=== PATIENT | female | born 1935 | race Hispanic/Latino ===

== ENCOUNTER 2016-07-26 15:37 | Emergency (ER) | payer MEDICARE, MEDICAID ==
[~2016-07-26] VITALS: Ht 165.1 cm; Wt 86.8 kg
[~2016-07-26 15:37] MED LIST: ASPI-973 PO; CARV6.252 PO; CEPH-512 PO; CHOL500011 PO; CLOP75TA28 PO; CYAN25003 SL; DONE10TA5 PO; ERGO500050 PO; HYDR-3605 PO; KEN25CR EXT; LISI40TA PO; OXYB10TA PO; PHEN-777 PO; PRAV40TA PO; UBID1CAP2 PO
[2016-07-26 15:39] VITALS: BP 216/84; PULSE 63; RESP 20; O2SAT 98
--- NOTE | 2016-07-26 15:52 | ED.REPORT ---
HPI-General Illness Date of Service July 26, 2016 ED Provider: Adilson Marquez MD The patient is an 80 year old female w/ a hx of brain aneurysm, CVA, and HTN who presents to the ED accompanied by her daughter due to a elevated blood pressure for the past couple days. Today, she went to her PCP appointment for her toenails and her PCP sent her to the ED for her high blood pressure. She also c/o ringing in her ears but no headache. She has been taking her blood pressure medication as usual. The pt denies chest pain and sob. She is currently on carvedilol and lisinopril (40 mg). Nursing Notes Stated Complaint: HIGH BLOOD PRESSURE Chief Complaint: General Complaint Nursing Notes Reviewed: Yes Allergies: Coded Allergies: celecoxib (Verified Allergy, Severe, stroke, 12/10/14) atorvastatin (Verified Adverse Reaction, Severe, numbness, 12/10/14) Scheduled Aspirin (Aspirin) 81 Mg Tablet 81 MG PO DAILY Carvedilol (Carvedilol) 12.5 Mg Tablet 12.5 MG PO BID Cholecalciferol (Vitamin D3) (Vitamin D3) 5,000 Unit Tablet 5,000 UNIT PO DAILY Clopidogrel (Clopidogrel) 75 Mg Tablet 75 MG PO DAILY Cyanocobalamin (Vitamin B-12) (Vitamin B-12) 2,500 Mcg Tab.subl 2,500 MCG SL DAILY Donepezil (Aricept) 10 Mg Tablet 20 MG PO HS Lisinopril (Lisinopril) 40 Mg Tablet 40 MG PO DAILY Oxybutynin Chloride ER (Oxybutynin Chloride ER) 10 Mg Tab.er.24 10 MG PO DAILY Pravastatin (Pravastatin) 40 Mg Tablet 40 MG PO HS Triamcinolone Acet (Triamcinolone Acetonide Cream) 1 Applic/0.25 Gm Cr 1 APPLIC EXT BID Ubidecarenone/Lingle-3/Vit E (Co Q-10-Vit E-Fish Oil Sfgl) 1 Each Capsule 1 EACH PO DAILY Scheduled PRN HydrOXYzine HCl (HydrOXYzine HCl) 10 Mg Tablet 5 MG PO HS PRN PRN For Itching General Time Seen by MD: 15:51 Chief Complaint Other (high blood pressure) Hx Obtained From: Patient Arrived By: Walk-in Sudden in Onset?: Yes Onset Occurred: 3 days ago Symptom Duration: Since onset Severity: Current: No pain currently Recent Healthcare: No recent doctor visit, No recent hospitalization Similar Sx Previous: No Past Medical History Past Medical History 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 Physical Exam Vital Signs Vital Signs Date Time Temp Pulse Resp B/P Pulse Ox O2 Delivery O2 Flow Rate FiO2 07/26/16 18:07 36.4 63 17 178/60 96 Room Air 07/26/16 17:51 36.4 63 17 178/60 96 Room Air 07/26/16 17:02 59 16 176/56 98 Room Air 07/26/16 16:15 67 19 192/69 98 Room Air 07/26/16 15:39 36.7 63 20 216/84 98 Room Air Initial VS: Reviewed Head / Eyes: Atraumatic, Normocephalic, PERRL ENT: Mucous membranes moist, Conjunctiva normal Neck: Supple, Non-tender Respiratory: Breath sounds normal, Clear to auscultation, No respiratory distress Cardiovascular: Regular rate & rhythm, Heart sounds normal, Intact distal pulses Abdomen / GI: Soft, Non-tender, No guarding, No rebound, No distention Back: No CVA tenderness Extremities: Vascular intact, Neuro intact, No swelling, No tenderness Skin: Warm, Dry Neurologic: Oriented X3, Speech NL, No motor deficits, No sensory deficits, CN II - XII intact Interpretation & Diagnostics Lab Results Interpretation Result Diagram: 07/26/16 1630 07/26/16 1630 Test 07/26/16 16:30 White Blood Count 7.2th/mm3 (3.8-10.1) Red Blood Count 4.29mil/mm3 (3.90-5.20) Hemoglobin 11.8g/dL (12.0-15.6) Hematocrit 36.2% (35.0-46.0) Mean Corpuscular Volume 84.4fL (81-100) Mean Corpuscular Hemoglobin 27.5pg (27.0-35.0) Mean Corpuscular Hemoglobin Concent 32.6% (32.0-37.0) Red Cell Distribution Width 14.9% (12.3-15.4) Platelet Count 230bil/L (150-400) Neutrophils (%) (Auto) 58.9% (40-74) Lymphocytes (%) (Auto) 27.3% (14-46) Monocytes (%) (Auto) 9.3% (4-12) Eosinophils (%) (Auto) 4.0% (0-5) Basophils (%) (Auto) 0.4% (0-3) Sodium Level 139mEq/L (134-144) Potassium Level 4.6mEq/L (3.5-5.2) Chloride Level 101mEq/L (97-108) Carbon Dioxide Level 23mmol/L (18-29) Blood Urea Nitrogen 14mg/dL (8-27) Creatinine 0.49mg/dL (0.57-1.00) Estimat Glomerular Filtration Rate 173mL/min (>59) Glucose Level 82mg/dL (60-99) Calcium Level 9.4mg/dL (8.5-10.1) Magnesium Level 2.0mg/dL (1.6-2.6) Total Bilirubin 0.4mg/dL (0.0-1.2) Aspartate Amino Transf (AST/SGOT) 27U/L (0-50) Alanine Aminotransferase (ALT/SGPT) 9U/L (0-32) Alkaline Phosphatase 66U/L (25-165) Troponin T < 0.010ug/L (0.0-0.011) Total Protein 7.3g/dL (6.4-8.4) Albumin 3.7g/dL (3.4-5.0) Hold Aviles Top Tube Received (Received) X-Ray Chest Interpretation Chest Xray Interpretation: IMPRESSION: No acute pulmonary process. Dictated by: Ivonne Iraheta M.D. on 07/26/2016 at 16:39 Approved by: Ivonne Iraheta M.D. on 07/26/2016 at 16:39 View: Portable Interpretation / Wet Read by: Interpret - Radiologist CT Head Interpretation IMPRESSION: No acute intracranial abnormality. Mild atrophy and small vessel ischemic change of aging. Postoperative changes. Right frontal craniotomy and metallic densities up to the aneurysm clip. Dictated by: Grover Guerrero M.D. on 07/26/2016 at 17:06 Approved by: Grover Guerrero M.D. on 07/26/2016 at 17:08 Study: Head CT no contrast Interpretation / Wet Read by: Interpret - Radiologist Re-Eval/Medical Decision Med Decision/Clinical Course 80-year-old female history of hypertension and aneurysm sent in by by primary doctor for elevated blood pressures. Her systolic blood pressure was 210 on arrival. It improved to 160s 170s with labetalol. Her only symptom was remaining in her ears which resolved with improvement in blood pressure. Her CT head is normal. Her labs are stable. She has no chest pain or shortness of breath or visual changes. No EKG changes. Patient with hypertensive urgency symptoms resolve. She was discharged home with plans to cut her primary doctor tomorrow for blood pressure recheck. Pending recheck they can discuss additional blood pressure medication options. Time of Eval: 17:21 Patient Status: Condition improved, Pain improved Re-Evaluation/Progress Note: Pt's blood pressure is improved and she feels much better. Plan to follow up with her primary care physician tomorrow. F/U and RTER warnings given. All questions addressed. Counseled Regarding: Diagnosis, Lab results, Need for follow-up, When/why to return to ED Discharge & Departure Primary Impression: Hypertensive urgency Disposition: Home Discharge Condition All VS Reviewed: Yes Condition: Stable Additional Instructions: Thank you for entrusting us with your care today. All of your lab work, x-rays and catscan are normal. Your blood pressure is better. There are no acute findings for your symptoms. Follow up with your primary care physician tomorrow for blood pressure recheck. Return to the Emergency Department for any headache , visual changes, chest pain, difficulty breathing, any other new or worsening symptoms. I hope you feel better soon, enjoy the sunshine! Shi por confiarnos cruz cuidado el da de hoy. Todos cruz exmenes de laboratorio, chino X y tomografa computarizada salieron normales. Cruz presin arterial est mejor. No se ndiaye encontrado nada arcelia shelia razn de marlon sntomas. Hacerse revisar nuevamente por cruz proveedor de rangel primaria maana para que vuelvan a revisarle la presin arterial. Volver al Departamento de Emergencia si le da algn dolor de jonathan, si tiene cambios en la vista, dolor de pecho, dificultad para respirar, y por cualquier otro sntoma nuevo o si algn sntoma que ya tiene empeora. Espero que se sienta mejor pronto, disfrute el cady! GR/Telephoto Engineer Referrals: Lino Smith DO (PCP) Scribe Attestation Portion of this note were transcribed by Lily Dean. I, Dr. Marquez, personally performed the history, physical exam, and medical decision-making: I reviewed and confirmed the accuracy for the information in the transcribed note. Signed by: waylon Kim, 07/26/16 1800 copies to: Lino Smith Ben M MD July 26, 2016 15:52 Lily Dean July 26, 2016 16:00
[2016-07-26] MEDS ORDERED: Labetalol 5 mg/mL 4 mL Inj IVPUSH ONE (16:00)
[2016-07-26 16:15] VITALS: BP 192/69; PULSE 67; RESP 19; O2SAT 98
--- NOTE | 2016-07-26 16:41 | DRSVH ---
CORRECTED CC PROVIDER ON 08/03/16 PROCEDURE: X-RAY CHEST ONE VIEW, PORTABLE ([id number]) INDICATIONS: chest pain TECHNIQUE: One view of the chest was acquired. COMPARISON: [facility], CR, XR CHEST 1VW (PORTABLE), 11/12/2014, 14:21. FINDINGS: Surgical changes and devices: None. Lungs and pleura: No pleural effusions or pneumothorax. Lungs are clear. Mediastinum: Mediastinal contours appear normal. Heart size is normal. Bones and chest wall: No suspicious bony lesions. Overlying soft tissues appear unremarkable. IMPRESSION: No acute pulmonary process. Dictated by: Ivonne Iraheta M.D. on 07/26/2016 at 16:39 Approved by: Ivonne Iraheta M.D. on 07/26/2016 at 16:39
[2016-07-26 16:45] LABS: BASOPHILS % (AUTO) 0.4 % (0-3); MONOCYTES % (AUTO) 9.3 % (4-12); Mean Corpuscular Hemoglobin 27.5 pg (27.0-35.0); Mean Corpuscular Volume 84.4 fL (81-100); NEUTROPHILS % (AUTO) 58.9 % (40-74); Platelet Count 230 bil/L (150-400)
[2016-07-26 17:02] VITALS: BP 176/56; PULSE 59; RESP 16; O2SAT 98
[2016-07-26] MEDS ORDERED: CARV12.52 PO (17:04)
--- NOTE | 2016-07-26 17:09 | DRSVH ---
PROCEDURE: CT BRAIN WITHOUT CONTRAST ([id number]) INDICATIONS: ndiaye htn possible h/o aneurysm TECHNIQUE: Noncontrast 4.5 mm thick angled axial sections acquired from the foramen magnum to the vertex, with c oronal reformats. COMPARISON: [facility], CT, CT BRAIN WO CON, 11/12/2014, 14:50. FINDINGS: Image quality: Excellent. CSF spaces: Basal cisterns are patent. No extra-axial fluid collections. The ventricles are symmet bridger in size and shape. Brain: Density in the region of the anterior cerebral arteries suggesting aneurysm clip. No intracran ial bleeds or masses. There is cerebral volume loss for age, with resultant ventricular and sulcal p rominence. There are periventricular and deep white matter chronic small vessel ischemic changes. T here is intracranial internal carotid artery atherosclerosis. Skull and face: Calvarium and visualized facial bones appear intact, without suspicious lesions. Sinuses: Visualized sinuses and mastoids are clear. IMPRESSION: No acute intracranial abnormality. Mild atrophy and small vessel ischemic change of aging . Postoperative changes. Right frontal craniotomy and metallic densities up to the aneurysm clip. Dictated by: Grover Guerrero M.D. on 07/26/2016 at 17:06 Approved by: Grover Guerrero M.D. on 07/26/2016 at 17:08
[2016-07-26 17:11] LABS: TROPONIN T < 0.010 ug/L (0.0-0.011)
[2016-07-26 17:51] VITALS: BP 178/60; PULSE 63; RESP 17; O2SAT 96
[2016-07-26 18:07] VITALS: BP 178/60; PULSE 63; RESP 17; O2SAT 96
== END 2016-07-26 18:08 | disposition home or self-care (01) ==
LOC: SED 15:37
DX: I16.0 Hypertensive urgency (principal); Z88.8 Allergy status to other drugs, medicaments and biological substances; Z87.891 Personal history of nicotine dependence; Z86.73 Personal history of transient ischemic attack (TIA), and cerebral infarction without residual deficits; Z79.82 Long term (current) use of aspirin

== ENCOUNTER 2016-08-03 11:00 | Emergency (ER) | payer MEDICARE, MEDICAID ==
[~2016-08-03] VITALS: Ht 165.1 cm; Wt 88.6 kg
[~2016-08-03 11:00] MED LIST changes: +CARV12.52 PO; -CARV6.252 PO; -CEPH-512 PO; -ERGO500050 PO; -PHEN-777 PO
[2016-08-03 11:10] VITALS: BP 133/67; PULSE 64; RESP 17; O2SAT 98
--- NOTE | 2016-08-03 12:23 | ED.REPORT ---
HPI-Trauma Minor / Fall Date of Service August 03, 2016 ED Provider: Mayank Cantrell MD The patient is an 80 year old female with history of prior CVA with residual left-sided deficits, and hypertension, who presents to the emergency department complaining of right hip pain that began last night after she had a ground level fall. The patient states she bent down to grab something and she became dizzy and fell. She did hit her face and has swelling/bruising to the bridge of her nose from her glasses. She does not remember the entire event. She is still able to ambulate with her walker. She denies any other injuries or trauma. Nursing Notes Stated Complaint: POST FALL Chief Complaint: Multiple Trauma/Fall Nursing Notes Reviewed: Yes Allergies: Coded Allergies: celecoxib (Verified Allergy, Severe, stroke, 08/03/16) atorvastatin (Verified Adverse Reaction, Severe, numbness, 08/03/16) Scheduled Aspirin (Aspirin) 81 Mg Tablet 81 MG PO DAILY Carvedilol (Carvedilol) 12.5 Mg Tablet 12.5 MG PO BID Cholecalciferol (Vitamin D3) (Vitamin D3) 5,000 Unit Tablet 5,000 UNIT PO DAILY Clopidogrel (Clopidogrel) 75 Mg Tablet 75 MG PO DAILY Cyanocobalamin (Vitamin B-12) (Vitamin B-12) 2,500 Mcg Tab.subl 2,500 MCG SL DAILY Donepezil (Aricept) 10 Mg Tablet 20 MG PO HS Lisinopril (Lisinopril) 40 Mg Tablet 40 MG PO DAILY Oxybutynin Chloride ER (Oxybutynin Chloride ER) 10 Mg Tab.er.24 10 MG PO DAILY Pravastatin (Pravastatin) 40 Mg Tablet 40 MG PO HS Triamcinolone Acet (Triamcinolone Acetonide Cream) 1 Applic/0.25 Gm Cr 1 APPLIC EXT BID Ubidecarenone/Oxly-3/Vit E (Co Q-10-Vit E-Fish Oil Sfgl) 1 Each Capsule 1 EACH PO DAILY Scheduled PRN HydrOXYzine HCl (HydrOXYzine HCl) 10 Mg Tablet 5 MG PO HS PRN PRN For Itching Hydrocodone-Acetaminophen 5-325 mg (Hydrocodone-Acetaminophen 5-325 mg) 1 Each Tablet 1 TABLET PO Q4H PRN PRN For Pain General Time Seen by MD: 12:22 Chief Complaint Fall, Face injury, Extremity pain Hx Obtained From: Patient, Daughter Arrived By: Walk-in Onset Occurred: Yesterday Symptom Duration: Since onset Caused by: Fall on ground Location: Face Hip right Quality: Painful Severity: Current: Mild Severity: Maximum: Moderate Recent Healthcare: No recent doctor visit, No recent hospitalization Similar Sx Previous: No Past Medical History Past Medical History Brain aneurysm 30 years ago with clips CVA with left sided deficits Reports: Hypertension Past Surgical History Brain surgery for aneurysm Reports: Cholecystectomy Reports: Hip replacement, Knee replacement Family History Noncontributory Smoking History Former Smoker Social History Alcohol Use: Denies alcohol use Drug Use: Denies drug use Other Social History: Good social support, Lives with children Ambulatory Status Walker Review of Systems Review of Systems Note: +facial injury Respiratory: Denies: Shortness of breath Musculoskeletal: Reports: Joint pain Skin: Reports Bruising Neurologic: Reports: Change LOC, Denies: Dizziness, Headache Complete sys rev & neg: except as marked. Cardiovascular: Denies: Chest pain Physical Exam Initial Vital Signs Vital Signs (First) Date Time Temp Pulse Resp B/P Pulse Ox O2 Delivery O2 Flow Rate FiO2 08/03/16 11:10 36.1 64 17 133/67 98 Initial VS: Reviewed Respiratory: Breath sounds normal, Clear to auscultation, No respiratory distress Cardiovascular: Regular rate & rhythm, Heart sounds normal, Intact distal pulses Abdomen / GI: Soft, Non-tender, No guarding, No rebound, No distention Lymphatic: No lymphadenopathy Extremities: Vascular intact, Neuro intact Skin: Warm, Dry, No cyanosis Neurologic: Alert, Oriented, Nonfocal Psychiatric: Mood/affect normal, Behavior normal, Normal thought content General/Constitutional: Awake, Alert, Cooperative Neck: Atraumatic, Supple, Full range of motion, No swelling, Non-tender, No midline vertebral tend Head / Eyes: Atraumatic, Normocephalic, PERRL, EOMI ENT: Airway patent, Mucous membranes moist There is some swelling and ecchymosis to the bridge of her nose. Lower Extremity / Pelvis / MS: Neurologic intact, Vascular intact The patient reports cramps when I lift her left leg. She has deep abrasions and redness to the proximal lateral right thigh. There is a large hematoma to the lateral aspect of her right hip. She has full range of motion of her right hip. Neurovascular intact. Neurologic: Oriented X3, Speech NL, No motor deficits, No sensory deficits, Cerebellar NL, Memory NL Interpretation & Diagnostics Lab Results Interpretation Result Diagram: 08/03/16 1540 08/03/16 1540 Test 08/03/16 15:14 08/03/16 15:40 Urine Color Yellow (YELLOW) Urine Appearance Clear (CLEAR,HAZY) Urine pH 6.5 (5.0-8.0) Urine Specific [place] 1.010 (1.003-1.035) Urine Protein Negativemg/dL (NEG,TRACE) Urine Glucose (UA) Negativemg/dL (NEGATIVE) Urine Ketones Negativemg/dL (NEGATIVE) Urine Occult Blood Negative (NEGATIVE) Urine Nitrite Negative (NEGATIVE) Urine Bilirubin Negative (NEGATIVE) Urine Urobilinogen Normalmg/dL (NORMAL) Urine Leukocyte Esterase Small (NEGATIVE) Urine RBC 0-2/hpf (0-2) Urine WBC 0-5/hpf (0-5) Urine Epithelial Cells Few/hpf (NONE-MOD) Urine Crystals None seen (NONE SEEN) Urine Bacteria Few/hpf (NONE-FEW) Urine Hyaline Casts None/lpf (NONE) Urine Granular Casts None seen (NONE SEEN) Urine Waxy Casts None seen (NONE SEEN) Urine Red Blood Cell Casts None seen (NONE SEEN) Urine White Blood Cell Casts None seen (NONE SEEN) Urine Mucus None seen (None Seen) Urine Trichomonas None seen (NONE SEEN) Urine Yeast None (NONE SEEN) Urinalysis Comment None Urine Culture Reflexed Indicated White Blood Count 7.9th/mm3 (3.8-10.1) Red Blood Count 4.55mil/mm3 (3.90-5.20) Hemoglobin 12.8g/dL (12.0-15.6) Hematocrit 38.0% (35.0-46.0) Mean Corpuscular Volume 83.5fL (81-100) Mean Corpuscular Hemoglobin 28.1pg (27.0-35.0) Mean Corpuscular Hemoglobin Concent 33.7% (32.0-37.0) Red Cell Distribution Width 14.4% (12.3-15.4) Platelet Count 212bil/L (150-400) Neutrophils (%) (Auto) 62.8% (40-74) Lymphocytes (%) (Auto) 23.8% (14-46) Monocytes (%) (Auto) 10.3% (4-12) Eosinophils (%) (Auto) 2.6% (0-5) Basophils (%) (Auto) 0.4% (0-3) Sodium Level 136mEq/L (134-144) Potassium Level 3.6mEq/L (3.5-5.2) Chloride Level 95mEq/L (97-108) Carbon Dioxide Level 26mmol/L (18-29) Blood Urea Nitrogen 23mg/dL (8-27) Creatinine 0.68mg/dL (0.57-1.00) Estimat Glomerular Filtration Rate 119mL/min (>59) Glucose Level 94mg/dL (60-99) Calcium Level 9.7mg/dL (8.5-10.1) Total Bilirubin 0.4mg/dL (0.0-1.2) Aspartate Amino Transf (AST/SGOT) 20U/L (0-50) Alanine Aminotransferase (ALT/SGPT) 10U/L (0-32) Alkaline Phosphatase 73U/L (25-165) Total Protein 7.5g/dL (6.4-8.4) Albumin 4.0g/dL (3.4-5.0) Hold Aviles Top Tube Received (Received) ECG Interpretation ECG Interpretation: Normal sinus rhythm with a rate of 55 bpm Time: 14:28 Interpreted by: ED physician CT Head Interpretation IMPRESSION: 1. No definite acute intracranial abnormality. 2. Post-surgical changes consistent with prior aneurysm clipping. Dictated by: Sean Navarro M.D. on 08/03/2016 at 12:53 Study: Head CT no contrast Interpretation / Wet Read by: Interpret - Radiologist Re-Eval/Medical Decision Med Decision/Clinical Course There is a large hematoma and some superficial abrasions on the right lateral thigh. I do not suspect a femoral fracture. She is able to evaluate. The only residual concern I have is why she fell the first place. She says she was dizzy and really has no recollection of the actual fall. We will get an EKG, standard blood work and urinalysis. The patient feels well and would like to go home right now so I will allow them to go home and will call them back if there are any significant abnormalities. Otherwise its conservative therapy for the hematoma. Source of Hx: Old records Re-Evaluation/Progress : Time of Eval: 14:00 Re-Evaluation/Progress Note: Discussed head CT results. Discussed plan for tests then discharge. All questions were addressed. Counseled Regarding: Diagnosis, Need for follow-up, When/why to return to ED Discharge & Departure Impression: Primary Impression: Fall Encounter type: initial encounter Qualified Code: W19.XXXA - Unspecified fall, initial encounter Additional Impressions: Contusion, hip and thigh Encounter type: initial encounter Laterality: right Qualified Code: S70.01XA - Contusion of right hip, initial encounter Hematoma of right hip Encounter type: initial encounter Qualified Code: S70.01XA - Contusion of right hip, initial encounter Syncope Syncope type: unspecified Qualified Code: R55 - Syncope and collapse Disposition: Home Discharge Condition All VS Reviewed: Yes Condition: Stable Patient Instructions: Contusion in Adults (ED), Fall Prevention for Older Adults (ED), Syncope (ED) Additional Instructions: Thank you for entrusting us with your care today. Your head CT today is reassuring. There is no evidence of an intracranial bleed. We will call you if any of the tests are abnormal. Otherwise followup with your regular doctor in 1 week if the leg pain is not improving. Apply ice packs to the painful areas. You can take Tylenol and/or ibuprofen as needed for your pain. I have also written you a prescription for Vicodin that you can use for breakthrough pain. Return to the emergency department for any new or concerning symptoms. Referrals: Sasha Andino DO (PCP) Scribe Attestation Portions of this note were transcribed by Marcy Norwood. I, Dr. Cantrell personally performed the history, physical exam and medical decision-making; I reviewed and confirmed the accuracy of the information in the transcribed note. Signed by: Ryan Rodríguez, 08/03/2016 at 1500. copies to: Sasha Andino Kirk H MD August 03, 2016 12:23 Marcy Norwood August 03, 2016 13:22
--- NOTE | 2016-08-03 13:17 | DRSVH ---
PROCEDURE: CT BRAIN WITHOUT CONTRAST ([id number]) INDICATIONS: head trauma TECHNIQUE: Noncontrast 4.5 mm thick angled axial sections acquired from the foramen magnum to the vertex, with c oronal reformats. COMPARISON: [facility], CT, CT BRAIN WO CON, 07/26/2016, 16:55. FINDINGS: Image quality: There is metallic streak artifact limiting evaluation. CSF spaces: Basal cisterns are patent. No extra-axial fluid collections. There is mild cerebral vo lume loss, with resultant ventricular and sulcal prominence. Brain: No definite intracranial hemorrhage, mass, or mass effect. There are surgical clips anterior ly between the frontal lobes compatible with aneurysm clipping. There are additional hypodensities in the frontal lobes compatible with post-surgical changes. There are additional subcortical, periventr icular and deep white matter hypodensities consistent with chronic small vessel ischemic changes. Th ere is intracranial internal carotid artery atherosclerosis. Skull and face: There are post-surgical changes in the frontal lobes consistent with prior craniotom y. No acute fractures. Sinuses: Visualized sinuses and mastoids are clear. IMPRESSION: 1. No definite acute intracranial abnormality. 2. Post-surgical changes consistent with prior aneurysm clipping. Dictated by: Sean Navarro M.D. on 08/03/2016 at 12:53 Approved by: Sean Navarro M.D. on 08/03/2016 at 13:16
[2016-08-03] MEDS ORDERED: HYDR-4003 PO (14:18)
[2016-08-03 15:24] VITALS: BP 160/80; PULSE 72; RESP 14; O2SAT 95
[2016-08-03 15:35] LABS: APPEARANCE,URINE CLEAR (CLEAR,HAZY); COLOR,URINE YELLOW (YELLOW); OCCULT BLOOD,URINE NEGATIVE (NEGATIVE); PH,URINE 6.5 (5.0-8.0); UROBILINOGEN,URINE NORMAL (NORMAL)
[2016-08-03 15:47] LABS: BASOPHILS % (AUTO) 0.4 % (0-3); EOSINOPHILS % (AUTO) 2.6 % (0-5); MONOCYTES % (AUTO) 10.3 % (4-12); Mean Corpuscular Hemoglobin 28.1 pg (27.0-35.0); Mean Corpuscular Volume 83.5 fL (81-100); NEUTROPHILS % (AUTO) 62.8 % (40-74); Platelet Count 212 bil/L (150-400)
== END 2016-08-03 15:31 | disposition home or self-care (01) ==
LOC: SED 11:00
DX: S70.01XA Contusion of right hip, initial encounter (principal); S70.11XA Contusion of right thigh, initial encounter; W18.39XA Other fall on same level, initial encounter; Y93.89 Activity, other specified; Y92.89 Other specified places as the place of occurrence of the external cause; Y99.8 Other external cause status; R55 Syncope and collapse; R42 Dizziness and giddiness; I10 Essential (primary) hypertension; I69.954 Hemiplegia and hemiparesis following unspecified cerebrovascular disease affecting left non-dominant side; Z96.643 Presence of artificial hip joint, bilateral; Z96.659 Presence of unspecified artificial knee joint; Z79.82 Long term (current) use of aspirin; Z87.891 Personal history of nicotine dependence; Z88.8 Allergy status to other drugs, medicaments and biological substances